=== PATIENT | female | born 1975 | race Caucasian/White ===

== ENCOUNTER 2021-12-15 07:34 | Day surgery (SDC) | payer OTHER, SELFPAY ==
[2021-12-15] VITALS (9 sets, daily range): BP systolic 149–170; BP diastolic 71–96; PULSE 68–84; RESP 16–18; TEMP 36.4; O2SAT 98–100; BMI 27.6
[2021-12-15] MEDS: CEFAZOLIN 2 GM INJ IVP (07:38)
[2021-12-15] MEDS: LACTATED RINGERS 1000 ML 1,000 ML 100 ML IV (08:00)
[2021-12-15] MEDS: SODIUM CHLORIDE 0.9 % (FLUSH) 10 ML SYRINGE IVF (08:08)
[2021-12-15 08:20] LABS: Glucose, Point-of-Care* 155 mg/dl (60-115)
[2021-12-15] MEDS: lidocaine HCL 2 % MULTIDOSE 20 ML VIAL INJECTION (09:52)
[2021-12-15] MEDS: BUPIVACAINE 0.5% 30 ML INJECTION (09:52)
--- NOTE | 2021-12-15 10:27 | P.ORPRC_ITS ---
Procedure Note Date of procedure: 12/15/21 Procedure: Preop diagnosis: Right hand index and middle finger stenosing tenosynovitis Postop diagnosis: Right hand index and middle finger stenosing tenosynovitis Procedure: Right hand index and middle finger A1 keith release Anesthesia: Local Surgeon: Jona Edwards MD assistant community manager: CONOR Moreau EBL: 0 mL Complications: None Specimens: None Drains: None Preoperative antibiotics: None Indications: The patient has a history of right upper extremity index and middle finger painful catching and locking. Despite appropriate non operative management including flexor tendon sheath corticosteroid injections they continue to have symptoms. Operative intervention was recommended. The risks, benefits alternatives and expected outcomes were discussed in detail. These included but were not limited to: Infection, bleeding, injury to blood vessel or nerve, venous thromboembolism. All questions were answered to their satisfaction. The patient was placed supine on the operating room table. Local anesthesia was established with 0.5% Marcaine without epinephrine and 2% lidocaine without epinephrine. The hand was prepped and draped in usual sterile fashion. The limb was elevated the forearm pneumatic tourniquet was inflated to 250 mm of mercury. A transverse incision was made centered over the base of the middle finger in the distal palmar crease. This was extended radially and distally over the base of the index finger. Subcutaneous dissection was taken through the palmar fascia to the flexor tendons, of the index finger, with the tenotomy scissors. The A1 keith was released with the 15 blade and a tenotomy scissors. Deep dissection was taken over the middle finger flexor tendons with the tenotomy scissors to the A1 keith. It was section with the scissors and the 15 blade freeing it up proximally and distally. Active flexion and extension of the fingers show no catching or locking, no bowstringing of the flexor tendons. The wound was closed with interrupted nylon sutures. A dry dressing was applied the tourniquet was released. Sponge and needle counts were correct x 2. The patient tolerated the procedure well, there were no apparent complications. They were sent to same day surgery in satisfactory condition. Plan: Use of the hand as tolerates. Discontinue the intraoperative dressing on postoperative day 3 and may get the wound wet as tolerates. Follow up in the office in 2 weeks for a wound check and suture removal. To be procedure note the date pre AC both
== END 2021-12-15 10:45 | disposition home or self-care (01) ==
PROVIDERS: PCP Family Medicine; Visit Provider Orthopaedic Surgery
PROC: (CPT 26055; principal; 2021-12-15 09:30)
DX: M65.321 Trigger finger, right index finger (principal); M65.331 Trigger finger, right middle finger; M65.841 Other synovitis and tenosynovitis, right hand
CPT/HCPCS: 26055 ×2; 82947; J0690; J3490; J7120

== ENCOUNTER 2022-06-15 06:19 | Day surgery (SDC) | payer OTHER, SELFPAY ==
[2022-06-15] VITALS (9 sets, daily range): BP systolic 135–160; BP diastolic 78–93; PULSE 61–80; RESP 15–17; TEMP 36.6–36.7; O2SAT 97–100; BMI 27.1
[2022-06-15] MEDS: LACTATED RINGERS 1000 ML 1,000 ML 35 ML IV (06:30)
[2022-06-15] MEDS: SODIUM CHLORIDE 0.9 % (FLUSH) 10 ML SYRINGE IVF (06:30)
[2022-06-15] MEDS: CEFAZOLIN 2 GM INJ IVP (06:40)
[2022-06-15] MEDS: lidocaine HCL 2 % MULTIDOSE 20 ML VIAL INJECTION (07:30)
[2022-06-15] MEDS: BUPIVACAINE 0.5% 30 ML INJECTION (07:30)
--- NOTE | 2022-06-15 07:40 | PM.ORPRC ---
Procedure Note Date of procedure: 06/15/22 Procedure: Preop diagnosis: Left thumb stenosing tenosynovitis Postop diagnosis: Left thumb stenosing tenosynovitis Procedure: Left thumb A1 keith release Anesthesia: Local Surgeon: Jona Edwards MD assistant professor of english: Angelita Monae PA-C EBL: 0 mL Complications: None Specimens: None Drains: None Preoperative antibiotics: Ancef 2 g Indications: The patient has a history of for thumb painful catching and locking. Despite appropriate non operative management including flexor tendon sheath corticosteroid injections they continue to have symptoms. Operative intervention was recommended. The risks, benefits alternatives and expected outcomes were discussed in detail. These included but were not limited to: Infection, bleeding, injury to blood vessel or nerve, venous thromboembolism. All questions were answered to their satisfaction. The patient was placed supine on the operating room table. Local anesthesia was established with 0.5% Marcaine without epinephrine and 2% lidocaine without epinephrine. The hand was prepped and draped in usual sterile fashion. The limb was elevated the forearm pneumatic tourniquet was inflated to 250 mm of mercury. A transverse incision was made in the MP flexion crease of the thumb. Subcutaneous dissection was taken through the palmar fascia to the flexor tendons with the tenotomy scissors. The A1 keith was released with the 15 blade and the tenotomy scissors. The edges of the A1 keith were sharply resected. Active flexion and extension of the thumb shows no catching or locking, no bowstringing of the flexor tendons. The wound was closed with interrupted nylon sutures. A dry dressing was applied the tourniquet was released. Sponge and needle counts were correct x 2. The patient tolerated the procedure well, there were no apparent complications. They were sent to same day surgery in satisfactory condition. Plan: Use of the hand as tolerates. Discontinue the intraoperative dressing on postoperative day 3 and may get the wound wet as tolerates. Follow up in the office in 2 weeks for a wound check and suture removal.
== END 2022-06-15 08:08 | disposition home or self-care (01) ==
PROVIDERS: PCP Family Medicine; Visit Provider Orthopaedic Surgery
PROC: (CPT 26055; principal; 2022-06-15 07:15)
DX: M65.312 Trigger thumb, left thumb (principal); M65.842 Other synovitis and tenosynovitis, left hand
CPT/HCPCS: 26055; 82962; J0690; J3490; J7120

== ENCOUNTER 2025-01-24 06:44 | Day surgery (SDC) | payer BC, SELFPAY ==
[2025-01-24] MEDS: LACTATED RINGERS 1000 ML 1,000 ML 100 ML IV (06:50)
[2025-01-24 07:06] LABS: Ur HCG Qualitative* Negative (Negative)
[2025-01-24 07:24] VITALS: BMI 26.2
--- NOTE | 2025-01-24 07:34 | SUR.OPER ---
PATIENT QUESTIONS ANSWERED SATISFACTORILY PREOPERATIVELY.?PATIENT BROUGHT TO OR #2 PER WHEELCHAIR.? Patient positioned supine on OR #2 bed.? The perioperative?team supported arms bilaterally on arm boards. Final approval of positioning by surgeon.?
[2025-01-24 07:37] VITALS: BP 112/96; PULSE 71; RESP 16; TEMP 36.9; O2SAT 98
[2025-01-24] MEDS: BUPIVACAINE 0.5 %/EPI 1:200K INJECTION (07:57)
[2025-01-24] MEDS: LIDOCAINE 2%-EPI 1:200,000 20 ML INFILTRATI (07:57)
--- NOTE | 2025-01-24 09:01 | PM.ORPRC ---
Procedure Note Date of procedure: 01/24/25 Procedure: Preop diagnosis: Right upper extremity carpal tunnel syndrome, ring finger stenosing tenosynovitis, Dupuytren's disease Postop diagnosis: Right upper extremity carpal tunnel syndrome, ring finger stenosing tenosynovitis, Dupuytren's disease Procedure: Right upper extremity carpal tunnel release, ring finger A1 keith release, limited palmar fasciectomy Anesthesia: Local Surgeon: Jona Edwards MD personnel assistant: GLADYS Ponce EBL: 5 mL Complications: None Specimens: None Drains: None Indications: The patient has a history of right hand symptoms related to the above diagnoses. Despite appropriate nonoperative management consisting of nighttime bracing and occupational therapy they continue to have symptoms. Operative intervention was recommended. The risks, benefits alternatives and expected outcomes were discussed in detail. These included but were not limited to: Infection, bleeding, injury to blood vessel or nerve, venous thromboembolism. All questions were answered to their satisfaction. The patient was placed supine on the operating room table. Local anesthesia was established with 0.5% Marcaine with epinephrine and 2% lidocaine with epinephrine. The hand was prepped and draped in usual sterile fashion. A longitudinal incision was made centered over the radial border of the ring finger at the base of the palm. Subcutaneous dissection was sharply taken through the palmar fascia and the palmaris brevis to the transverse carpal ligament. The ligament was divided in line with the incision. Proximal and distal dissection was carried with tenotomy and Metzenbaum scissors for a wide decompression of the carpal tunnel. The the perineurium of the median nerve and the paratenon of the flexor tendons was thickened as typically seen in a type 1 diabetic. This was not excised. Attention then turned to the ring finger a transverse incision was made in the distal palmar crease at the base of the ring finger. Subcutaneous dissection was sharply taken to the flexor tendons. The A1 keith was divided longitudinally with the 15 blade and tenotomy scissors. The thickened palmar fascia was excised on both sides of the wound with the 15 blade and tenotomy scissors. It was more significantly thickened and fibrotic proximal to the incision. The wounds were closed with a 3-0 nylon. A dry dressing was applied, sponge and needle counts were correct x 2. The patient tolerated the procedure well, there were no apparent complications. They were sent to same day surgery in satisfactory condition. Plan: Use of the hand as tolerates. Discontinue the intraoperative dressing on postoperative day 3 and may get the wound wet as tolerates. Follow up in the office in 2 weeks for a wound check and suture removal.
[2025-01-24 09:08] VITALS: BP 114/94; PULSE 72; RESP 16; TEMP 36.9; O2SAT 96
--- NOTE | 2025-01-24 09:08 | P.ANES_ITS ---
Anesthesia Charges Start Date/Time Anesthesia Start Date: 01/24/25 Anesthesia Start Time: 07:45 Stop Date/Time Anesthesia Stop Date: 01/24/25 Anesthesia Stop Time: 09:07 Coding CPT Codes CPT Codes: ANESTH LOWER ARM SURGERY - 67070 ([id number]) P2 - PATIENT W/MILD SYST DISEASE, QK - LIMOUSINE RENTAL CLERK 2-4 CNCRNT ANES PROC
--- NOTE | 2025-01-24 09:08 | W.ANESCHARGE ---
Anesthesia Charges Start Date/Time Anesthesia Start Date: 01/24/25 Anesthesia Start Time: 07:45 Stop Date/Time Anesthesia Stop Date: 01/24/25 Anesthesia Stop Time: 09:07 Coding CPT Codes CPT Codes: ANESTH LOWER ARM SURGERY - 99959 ([id number]) P2 - PATIENT W/MILD SYST DISEASE, QK - TEACHER OF FAMILY AND CONSUMER SCIENCE 2-4 CNCRNT ANES PROC
[2025-01-24 09:15] VITALS: BP 149/80; PULSE 72; RESP 16; O2SAT 98
[2025-01-24 09:30] VITALS: BP 140/85; PULSE 70; RESP 16; O2SAT 96
[2025-01-24 09:45] VITALS: BP 138/80; PULSE 68; RESP 16; O2SAT 97
[2025-01-24 10:00] VITALS: BP 135/81; PULSE 70; RESP 16; O2SAT 96
--- NOTE | 2025-01-24 11:20 | P.ANES_ITS ---
Anesthesia Charges Start Date/Time Anesthesia Start Date: 01/24/25 Anesthesia Start Time: 07:45 Stop Date/Time Anesthesia Stop Date: 01/24/25 Anesthesia Stop Time: 09:07 Coding CPT Codes CPT Codes: ANESTH LOWER ARM SURGERY - 71708 ([id number]) P2 - PATIENT W/MILD SYST DISEASE, QK - PROCESS CONTROL OPERATOR 2-4 CNCRNT ANES PROC, QX - SCHOOL GUARD SVC W/ MD MED DIRECTION
--- NOTE | 2025-01-24 11:20 | W.ANESCHARGE ---
Anesthesia Charges Start Date/Time Anesthesia Start Date: 01/24/25 Anesthesia Start Time: 07:45 Stop Date/Time Anesthesia Stop Date: 01/24/25 Anesthesia Stop Time: 09:07 Coding CPT Codes CPT Codes: ANESTH LOWER ARM SURGERY - 43037 ([id number]) P2 - PATIENT W/MILD SYST DISEASE, QK - CHARGE OPERATOR 2-4 CNCRNT ANES PROC, QX - TRAVEL ATTENDANTS SVC W/ MD MED DIRECTION
== END 2025-01-24 10:25 | disposition home or self-care (01) ==
LOC: OR 06:46
PROVIDERS: Anesthesiology; PCP Student in an Organized Health Care Education/Training Program; Visit Provider Orthopaedic Surgery
PROC: (CPT 64721; principal; 2025-01-24 07:45)
PROC: (CPT 26055; 2025-01-24 07:45)
DX: G56.01 Carpal tunnel syndrome, right upper limb (principal); M65.841 Other synovitis and tenosynovitis, right hand; M72.0 Palmar fascial fibromatosis [Dupuytren]
CPT/HCPCS: 64721; 26055; 26123; 01810; 81025; J0690; J2250; J2405; J2704; J3490; J7120